=== PATIENT | female | born 1940 | race African-American/Black ===

== ENCOUNTER 2018-08-03 09:23 | Day surgery (SDC) | payer MEDICARE, OTHER ==
[~2018-08-03 09:23] MED LIST: CEFAZOLIN 1 GM/D5W RTU 1 GM/50 ML RTUPB IV ONE; CEFAZOLIN 1 GM/D5W RTU 1 GM/50 ML RTUPB IV PRN; DIAZEPAM 5 MG TABLET ONE; DIAZEPAM 5 MG TABLET PO PRN; OXYCODONE-ACETAMINOPHEN 5-325 MG TABLET ONE; OXYCODONE-ACETAMINOPHEN 5-325 MG TABLET PO PRN
--- NOTE | 2018-08-03 10:27 | RADIOLOGY REPORT (SQ) ---
EXAM DESCRIPTION: CHEST SINGLE VIEW COMPLETED DATE/TIME: 08/03/2018 10:04 am REASON FOR STUDY: PREOP COMPARISON: 01/26/2015 EXAM PARAMETERS: NUMBER OF VIEWS: One view. TECHNIQUE: Single frontal radiographic view of the chest acquired. RADIATION DOSE: NA LIMITATIONS: None. FINDINGS: LUNGS AND PLEURA: Post right upper lobectomy. Lungs are well inflated and clear. No pleu ral effusion. No pneumothorax. MEDIASTINUM AND HILAR STRUCTURES: Surgical clips at the right hilum post right upper lobectomy. HEART AND VASCULAR STRUCTURES: Heart normal in size. Normal vasculature. BONES: No acute findings. HARDWARE: None in the chest. OTHER: No other significant finding. IMPRESSION: No acute findings. Right upper lobectomy. TECHNICAL DOCUMENTATION: JOB ID: [id number] [email or web address]- All Rights Reserved Reading location - IP/workstation name: [email or web address]
[2018-08-03 10:28] LABS: HEMATOCRIT 33.9 % (36.0-47.0); HEMOGLOBIN 10.8 g/dL (12.0-15.5); MEAN CORPUSCULAR HEMOGLOBIN 22.7 pg (27.0-33.4); MEAN CORPUSCULAR HGB CONC 31.9 g/dL (32.0-36.0); MEAN CORPUSCULAR VOLUME 71 fl (80-97); PLATELET COUNT 296 10^3/uL (150-450); RED BLOOD COUNT 4.75 10^6/uL (3.72-5.28); RED CELL DISTRIBUTION WIDTH 17.7 % (11.5-14.0); WHITE BLOOD COUNT 9.1 10^3/uL (4.0-10.5)
[2018-08-03 10:51] LABS: ANION GAP 9 (5-19); BLOOD UREA NITROGEN 13 mg/dL (7-20); CALCIUM 9.9 mg/dL (8.4-10.2); CARBON DIOXIDE 29 mmol/L (22-30); CHLORIDE 102 mmol/L (98-107); GLUCOSE 107 mg/dL (75-110); SODIUM 139.6 mmol/L (137-145)
[2018-08-03] MEDS ORDERED: LIDOCAINE 0.5% INJ-PF (5 MG/ML) 50 ML SDV ONE (11:12)
[2018-08-03] MEDS ORDERED: BACITRACIN INJ 50,000 UNIT VIAL ONE (11:13)
[2018-08-03] MEDS ORDERED: MIDAZOLAM 2 MG/2 ML INJ ONE (11:23)
[2018-08-03] MEDS ORDERED: FENTANYL CITRATE INJ/PF 100 MCG/2 ML AMPUL ONE (11:23)
--- NOTE | 2018-08-03 12:33 | Discharge Summary ---
Discharge Summary (SDC) - Discharge Final Diagnosis: Lung cancer Date of Surgery: 08/03/18 Discharge Date: 08/03/18 Condition: Fair Treatment or Instructions: Discharge home [after recovery per ASU criteria]. Diet , as tolerated, when fully awake advance as tolerated. Activities within moderation encouraged. Follow up in my office by appointment in about [1 week]. Call for appointment. Leave wounds [covered], [keep clean and dry, until office visit in 1 week]. Meds per med rec. May shower [in 48 hrs], [try to keep operated area as dry as possible]. Referrals: GORDON LOJA MD [Primary Care Provider] - Discharge Diet: As Tolerated Respiratory Treatments at Home: Deep Breathing/Coughing Discharge Activity: Activity As Tolerated Report the Following to Your Physician Immediately: Unusual Bleeding
--- NOTE | 2018-08-03 12:35 | Operative Report ---
Operative Report DATE OF SURGERY: 08/03/18 PREOPERATIVE DIAGNOSIS: Lung cancer POSTOPERATIVE DIAGNOSIS: Lung cancer OPERATION: 1. Ultrasound evaluation of the right internal jugular vein. 2. Insertion of Port-A-Cath via real-time access in the right internal jugular ve in. 3. Angiogram and interpretation. SURGEON: JEIMY EVANS HEAT TRANSFER TECHNICIAN: None. ANESTHESIA: Moderate Sedation TISSUE REMOVED OR ALTERED: Not applicable. COMPLICATIONS: None. ESTIMATED BLOOD LOSS: 5 mL. INTRAOPERATIVE FINDINGS: Of mediastinal enlargement with right deviation of the superior vena cava. Satisfactory access in position with the tip of the catheter down in the inferior superior vena cava. Easy egress of blood and ingress of heparinized solution. Catheter angiogram demonstrates smooth flow of contrast through the right atrium ventricle and pulmonary outflow tract. PROCEDURE: After obtaining informed consent, the patient was taken to the [facility] and positioned supine. The [right] neck and chest were prepared with chlorhexidine and draped out with sterile linen. After the " universal timeout", in which it was verified that the patient continued to receive antibiotic, the procedure commenced. A steriley sheathed ultrasound probe was used to evaluate the [right] internal jugular vein. Local anesthesia was infiltrated adjacent to the probe. Access into the [right] internal jugular vein was obtained using a micropuncture needle, followed by micropuncture wire and then a micropuncture catheter. An angiogram was done through this to verify the this was followed by introduction of a 0.035 guidewire the tip of which was placed down into the inferior vena cava . The port sites was marked , locally anesthetized and incision made. Dissection now proceeded to the deep subcutaneous subcutaneous tissues so that a pocket for the port was made. Meticulous hemostasis was secured and the catheter was tunneled between the 2 incisions. Proximally, the catheter was now positioned using a peel-away sheath. Distally the catheter was tailored to an appropriate length and then mated to the port using the contained fixating device. The port was now placed in the pocket and the catheter optimally positioned. The port was accessed with a Hopkins needle and an angiogram done under digital subtraction. The findings as dictated. With adequate and satisfactory positioning, the lumen of the chamber were irrigated with heparinized solution. The wounds were now closed using interrupted 3-0 PDS to the subcutaneous tissues and a continuous subcuticular suture of 4-0 Monocryl to the skin. These are reinforced with Steri-Strips over benzoin and then dressings applied. Time: 0.2 minute. Dose: 22.23 m Gy Contrast: 10 Mls. Isovue 300. Copies of the dictated operative report for Dr. Jeimy Keller MD.
--- NOTE | 2018-08-03 13:02 | RADIOLOGY REPORT (SQ) ---
EXAM DESCRIPTION: PORTACATH INSERTION COMPLETED DATE/TIME: 08/03/2018 12:18 pm REASON FOR STUDY: C34.11 RT LUNG CA C34.11 MALIGNANT NEOPLASM OF UPPER LOBE, RIGHT BRONCHUS OR L COMPARISON: None. FLUOROSCOPY TIME: 0.2 minutes 33 digital radiographic images saved to PACS. TECHNIQUE: Intra-operative images acquired during surgical procedure to evaluate progress. NUMBER OF IMAGES: 33 digital radiographic images LIMITATIONS: None. FINDINGS: Intra procedural imaging and fluoro during placement of a right-sided permanent central li ne with the tip at the junction of the superior vena cava/ right atrium. Surgical clips right hilum post upper lobectomy. Please see the operative report for further details IMPRESSION: Intra procedural imaging and fluoro during central line placement COMMENT: Quality ID [id number]: Final reports for procedures using fluoroscopy that document radiation exp osure indices, or exposure time and number of fluorographic images (if radiation exposure indices are not available) Please consult full operative report of the attending physician for description of the procedure. TECHNICAL DOCUMENTATION: JOB ID: [id number] [employer]- All Rights Reserved Reading location - IP/workstation name: [email or web address]
[2018-08-03 14:41] VITALS: BP 123/65
== END 2018-08-03 13:45 | disposition home or self-care (01) ==
LOC: CCL 09:23
PROVIDERS: ATTEND Surgery
DX: C34.11 Malignant neoplasm of upper lobe, right bronchus or lung (principal); I12.0 Hypertensive chronic kidney disease with stage 5 chronic kidney disease or end stage renal disease; E11.22 Type 2 diabetes mellitus with diabetic chronic kidney disease; N18.6 End stage renal disease; K02.9 Dental caries, unspecified; E66.9 Obesity, unspecified; Z68.45 Body mass index [BMI] 70 or greater, adult; Z87.891 Personal history of nicotine dependence; Z01.818 Encounter for other preprocedural examination; Z79.899 Other long term (current) drug therapy; Z79.82 Long term (current) use of aspirin
CPT/HCPCS: 36415; 85027; 80048; 36561; 76937; 77001; 71045; C1752; C1788; Q9967; J2250; J3490 ×2; J0690; A9270 ×2; J3010; J1644

== ENCOUNTER → 2018-09-10 | Outpatient (CLI) | payer MEDICARE, OTHER ==
--- NOTE | 2018-09-10 09:34 | RADIOLOGY REPORT (SQ) ---
EXAM DESCRIPTION: CT CHEST WITH COMPLETED DATE/TIME: 09/10/2018 8:55 am REASON FOR STUDY: LUNG CA (C34.11) C34.11 MALIGNANT NEOPLASM OF UPPER LOBE, RIGHT BRONCHUS OR L COMPARISON: No prior examinations are available at this reading. TECHNIQUE: CT scan of the chest performed using helical scanning technique with dynamic intravenous contrast injection. Images reviewed with lung, soft tissue and bone windows. Reconstructed coronal and sagittal MPR and MIP images reviewed. All images stored on PACS. All CT scanners at this facility use dose modulation, iterative reconstruction, and/or weight based d osing when appropriate to reduce radiation dose to as low as reasonably achievable (ALARA). [facility]: Dose Right [facility]: CareDose [facility]: Dose Right [facility]: Teradose 4D [facility]: [employer] CONTRAST TYPE AND DOSE: contrast/concentration: Isovue 350.00 mg/ml; Total Contrast Delivered: 79.0 ml; Total Saline Delivered: 55.0 ml RENAL FUNCTION: Within acceptable limits. RADIATION DOSE: Total exam DLP: 577.58 mGy-cm. LIMITATIONS: None. FINDINGS: LUNGS AND PLEURA: Status post operative changes in the right hemithorax related to right upper lobectomy with loss of volume. Small to mild right pleural effusion. Mild emphysematous and interstitial changes in the lungs. Scattered subpleural nodularity in the lef t lung with one of the largest measuring approximately 5-6.0 mm. Left perifissural nodules which radha sure 5-6 mm. No evidence of pneumothorax. The central airways are clear. HILAR AND MEDIASTINAL STRUCTURES: Borderline to mildly prominent mediastinal lymph nodes. HEART AND VASCULAR STRUCTURES: Atherosclerotic changes involving the thoracic aorta. Focal small areas of cor onary artery calcifications. No aneurysm or dissection. No central pulmonary emboli. No pericardia l effusion. HARDWARE: Right Nztsko-X-Uqik catheter. UPPER ABDOMEN: A too small to characterize hypoattenuated lesion in the periphery of the right hepat ic lobe, axial image 47, series 2. Prior cholecystectomy. Exophytic left renal cyst. Mild atherosc lerotic changes involving the visualized abdominal aorta. Splenule, normal anatomic variant. Small hiatal hernia. Limited examination. THYROID AND OTHER SOFT TISSUES: The visualized thyroid gland is heterogenous in appearance with smal l subcentimeter hypoattenuated nodules. BONES: No significant finding. OTHER: No other significant finding. IMPRESSION: 1. The patient's prior examinations are not available at this reading. 2. Status postoperative changes in the right hemithorax related to prior right upper lobectomy. 3. Mild emphysematous and interstitial changes in the lungs. 4. Scattered subpleural nodularity in the left lung and left perifissural nodules. 5. Too small to characterize hypoattenuated right hepatic lobe lesion. 6. Additional findings as above. TECHNICAL DOCUMENTATION: JOB ID: [id number] Quality ID # [id number]: Final reports with documentation of one or more dose reduction techniques (e.g., Au tomated exposure control, adjustment of the mA and/or kV according to patient size, use of iterative reconstruction technique) 2010 [employer]- All Rights Reserved Reading location - IP/workstation name: [email or web address]
== END ==
LOC: RAD 08:29
PROVIDERS: ATTEND Physician Assistant Medical
DX: C34.11 Malignant neoplasm of upper lobe, right bronchus or lung (principal); N28.1 Cyst of kidney, acquired
CPT/HCPCS: 71260

== ENCOUNTER → 2019-01-31 | Outpatient (CLI) | payer MEDICARE, OTHER ==
--- NOTE | 2019-02-01 11:35 | RADIOLOGY REPORT (SQ) ---
EXAM DESCRIPTION: PET CT SKULL/THIGH COMPLETED DATE/TIME: 02/01/2019 1:07 am REASON FOR STUDY: (C34.11)MALIGNANT NEOPLASM OF UPPER LOBE, RIGHT BRONCHUS OR LUNG C34.11 MALIGNANT NEOPLASM OF UPPER LOBE, RIGHT BRONCHUS OR L COMPARISON: CT chest 09/10/2018 RADIONUCLIDE AND DOSE: 10.7 mCi F18 FDG The route of agent administration: Intravenous FASTING BLOOD SUGAR: 106 mg/dl CONTRAST TYPE AND DOSE: No CT contrast given. TECHNIQUE: Blood glucose level was verified. Above dose of FDG was injected intravenously. 2-D seg mented attenuation correction images were obtained from the base of the skull to the midthighs. Nonc ontrast CT images were obtained for attenuation correction and fusion with emission images. CT image s were performed without oral or intravenous contrast and are not sensitive for parenchymal lesions. A series of overlapping emission PET images were obtained. Images reviewed and manipulated at [facility] by the radiologist. Images stored on PACS. LIMITATIONS: CT chest 09/10/2018 FINDINGS: HEAD AND NECK: No areas of abnormal metabolic activity in the soft tissues of the head and neck. CHEST: Post right upper lobectomy, with resection of the right 2nd 3rd and 4th posterior ribs posteri or ribs. There is volume loss in the right hemithorax with trace right pleural effusion. Consolidat ion is present in the residual right upper lung worrisome for pneumonia, with SUV of 6.8. No right hilar or mediastinal metabolically active adenopathy. No right supraclavicular or axillary adenopathy. ABDOMEN AND PELVIS: Clips right upper quadrant post cholecystectomy. PROXIMAL LOWER EXTREMITIES: No areas of abnormal metabolic activity in the soft tissues of the lower extremities. BONES: No abnormal metabolic activity in the visualized skeleton. ADDITIONAL CT FINDINGS: Benign water density non metabolic left adnexal cyst, 7 x 5 cm in size. Post cholecystectomy. OTHER: Liver background activity 2.7 SUV. Blood pool background activity 1.8 SUV IMPRESSION: Consolidation of right lung new compared to prior chest CT 09/10/2018, worrisome for pneum onia. No PET-CT evidence of recurrent lung cancer TECHNICAL DOCUMENTATION: JOB ID: [id number] [employer]- All Rights Reserved Reading location - IP/workstation name: [email or web address]
== END ==
LOC: RAD 14:45
PROVIDERS: ATTEND Physician Assistant Medical
DX: C34.11 Malignant neoplasm of upper lobe, right bronchus or lung (principal)
CPT/HCPCS: 78815; A9552

== ENCOUNTER → 2019-02-19 | Outpatient (CLI) | payer MEDICARE, OTHER ==
--- NOTE | 2019-02-19 16:25 | RADIOLOGY REPORT (SQ) ---
EXAM DESCRIPTION: CHEST PA/LATERAL COMPLETED DATE/TIME: 02/19/2019 4:14 pm REASON FOR STUDY: SHORTNESS OF BREATH COMPARISON: 08/03/2018. CT chest from September. PET-CT from January. TECHNIQUE: Frontal and lateral radiographic views of the chest acquired. NUMBER OF VIEWS: Two view. LIMITATIONS: None. FINDINGS: LUNGS AND PLEURA: Stents of volume loss right lung. As seen on PET-CT, patchy airspace di sease and pleural thickening, doubt change compared to the January head study. Left lung remains chele r. MEDIASTINUM AND HILAR STRUCTURES: Shift of mediastinal structures to the right, chronic. HEART AND VASCULAR STRUCTURES: Stable. BONES: Osteopenic. HARDWARE: Right central line. OTHER: No other significant finding. IMPRESSION: Airspace disease and volume loss right lung, similar appearance to PET study from last [facility]. TECHNICAL DOCUMENTATION: JOB ID: [id number] [employer]- All Rights Reserved Reading location - IP/workstation name: [email or web address]
== END ==
LOC: OD 15:29
PROVIDERS: ATTEND Internal Medicine
DX: R06.02 Shortness of breath (principal)
CPT/HCPCS: 71046

== ENCOUNTER → 2019-03-19 | Outpatient (CLI) | payer MEDICARE, OTHER ==
--- NOTE | 2019-03-19 10:28 | RADIOLOGY REPORT (SQ) ---
EXAM DESCRIPTION: CT CHEST WITHOUT COMPLETED DATE/TIME: 03/19/2019 8:51 am REASON FOR STUDY: (C34.11)MALIGNANT NEOPLASM OF UPPER LOBE, RIGHT BRONCHUS OR LUNG C34.11 MALIGNANT NEOPLASM OF UPPER LOBE, RIGHT BRONCHUS OR L COMPARISON: PET-CT dated 01/31/2019, CT chest dated 09/10/2018 TECHNIQUE: CT scan performed of the chest without intravenous contrast. Images reviewed with lung, soft tissue and bone windows. Reconstructed coronal and sagittal MPR images reviewed. All images st ored on PACS. All CT scanners at this facility use dose modulation, iterative reconstruction, and/or weight based d osing when appropriate to reduce radiation dose to as low as reasonably achievable (ALARA). [facility]: Dose Right [facility]: CareDose [facility]: Dose Right [facility]: Teradose 4D [facility]: [employer] RADIATION DOSE: CT Rad equipment meets quality standard of care and radiation dose reduction techniq ues were employed. CTDIvol: 17.1 mGy. DLP: 615 mGy-cm. mGy. LIMITATIONS: No technical limitations. FINDINGS: LUNGS AND PLEURA: Postsurgical changes on the right are again noted with volume loss. Per sistent dense consolidation in the right upper lobe unchanged from recent PET-CT. There is pleural t hickening. There is new subpleural airspace disease in the anterior aspect of the left upper lobe wi th a small new ill-defined 8 mm pulmonary nodule. This is new from recent PET as well. Differential include infectious or inflammatory process or metastatic disease HILAR AND MEDIASTINAL STRUCTURES: No identified masses or abnormal nodes. No obvious aneurysm. HEART AND VASCULAR STRUCTURES: No aneurysm. No pericardial effusion. UPPER ABDOMEN: No significant findings. Limited exam. THYROID AND OTHER SOFT TISSUES: No masses. No adenopathy. BONES: Stable in appearance. HARDWARE: None in the chest. OTHER: No other significant findings. IMPRESSION: 1. Stable dense consolidation in the right upper lobe most likely infectious or inflamma tory based on PET findings. 2. New 8 mm ill-defined nodule in the left upper lobe best demonstrated on series 4, image 18. This could represent infectious or inflammatory process. Metastatic disease cannot be excluded. 3. Postsurgical changes on the right with volume loss. TECHNICAL DOCUMENTATION: JOB ID: [id number] Quality ID # 436: Final reports with documentation of one or more dose reduction techniques (e.g., Au tomated exposure control, adjustment of the mA and/or kV according to patient size, use of iterative reconstruction technique) 2010 [employer]- All Rights Reserved Reading location - IP/workstation name: [email or web address]
== END ==
LOC: RAD 08:13
PROVIDERS: ATTEND Internal Medicine
DX: C34.11 Malignant neoplasm of upper lobe, right bronchus or lung (principal)
CPT/HCPCS: 71250

== ENCOUNTER → 2019-05-17 | Outpatient (CLI) | payer MEDICARE, OTHER ==
--- NOTE | 2019-05-17 10:02 | RADIOLOGY REPORT (SQ) ---
EXAM DESCRIPTION: CT CHEST WITHOUT COMPLETED DATE/TIME: 05/17/2019 7:36 am REASON FOR STUDY: LUNG CA (C34.11) C34.11 MALIGNANT NEOPLASM OF UPPER LOBE, RIGHT BRONCHUS OR L COMPARISON: 03/19/2019 TECHNIQUE: CT scan performed of the chest without intravenous contrast. Images reviewed with lung, soft tissue and bone windows. Reconstructed coronal and sagittal MPR images reviewed. All images st ored on PACS. All CT scanners at this facility use dose modulation, iterative reconstruction, and/or weight based d osing when appropriate to reduce radiation dose to as low as reasonably achievable (ALARA). [facility]: Dose Right [facility]: CareDose [facility]: Dose Right [facility]: Teradose 4D [facility]: [employer] RADIATION DOSE: CT Rad equipment meets quality standard of care and radiation dose reduction techniq ues were employed. CTDIvol: 17.9 mGy. DLP: 651 mGy-cm. mGy. LIMITATIONS: No technical limitations. FINDINGS: LUNGS AND PLEURA: Old right upper lobectomy thoracotomy. Chronic consolidation superior s egment right lower lobe. Left upper lobe pleural-based nodule image 37 measuring 5 mm, less conspicu ous than prior. No new nodules. HILAR AND MEDIASTINAL STRUCTURES: No identified masses or abnormal nodes. No obvious aneurysm. HEART AND VASCULAR STRUCTURES: No aneurysm. No pericardial effusion. UPPER ABDOMEN: No significant findings. Limited exam. THYROID AND OTHER SOFT TISSUES: No masses. No adenopathy. BONES: No significant finding. HARDWARE: None in the chest. OTHER: Right-sided central line. IMPRESSION: Chronic changes in the right lung status post right upper lobectomy/ thoracotomy. Stable subcentimeter nodule left upper lobe. TECHNICAL DOCUMENTATION: JOB ID: [id number] Quality ID # 436: Final reports with documentation of one or more dose reduction techniques (e.g., Au tomated exposure control, adjustment of the mA and/or kV according to patient size, use of iterative reconstruction technique) 2010 [employer]- All Rights Reserved Reading location - IP/workstation name: [email or web address]
== END ==
LOC: RAD 07:22
PROVIDERS: ATTEND Physician Assistant Medical
DX: C34.11 Malignant neoplasm of upper lobe, right bronchus or lung (principal)
CPT/HCPCS: 71250

== ENCOUNTER → 2019-07-13 | Outpatient (CLI) | payer MEDICARE, OTHER ==
--- NOTE | 2019-07-14 12:22 | RADIOLOGY REPORT (SQ) ---
EXAM DESCRIPTION: PET CT SKULL/THIGH COMPLETED DATE/TIME: 07/13/2019 9:09 pm REASON FOR STUDY: C34.11 MALIGNANT NEOPLASM OF UPPER LOBE, RIGHT BRONCHUS OR LUNG C34.11 MALIGNANT NEOPLASM OF UPPER LOBE, RIGHT BRONCHUS OR L COMPARISON: CT of the chest without contrast from 05/17/2019 and PET from 01/31/2019. RADIONUCLIDE AND DOSE: 9.85 mCi F18 FDG The route of agent administration: Intravenous FASTING BLOOD SUGAR: 104 mg/dl CONTRAST TYPE AND DOSE: No CT contrast given. TECHNIQUE: Blood glucose level was verified. Above dose of FDG was injected intravenously. 2-D seg mented attenuation correction images were obtained from the base of the skull to the midthighs. Nonc ontrast CT images were obtained for attenuation correction and fusion with emission images. CT image s were performed without oral or intravenous contrast and are not sensitive for parenchymal lesions. A series of overlapping emission PET images were obtained. Images reviewed and manipulated at [facility] work station by the radiologist. Images stored on PACS. LIMITATIONS: None. FINDINGS: HEAD AND NECK: No areas of abnormal metabolic activity in the soft tissues of the head and neck. CHEST: Status post right upper lobectomy and right thoracotomy. The areas of consolidation with air bronchograms in the superior aspect of the right lower lobe are unchanged and demonstrate mild diffus e FDG uptake with a maximum SUV of 4.3. No areas of abnormal metabolic activity identified in the ch est. ABDOMEN AND PELVIS: The liver demonstrates heterogeneous FDG uptake with an average SUV of 2.6. Ther e is expected physiologic activity throughout the gastrointestinal and genitourinary tracts. No area s of abnormal metabolic activity are identified in the abdomen and pelvis. PROXIMAL LOWER EXTREMITIES: No areas of abnormal metabolic activity in the soft tissues of the lower extremities. BONES: No areas of abnormal metabolic activity in the imaged axial and appendicular skeleton. ADDITIONAL CT FINDINGS: Status post cholecystectomy. There is a 2.2 cm accessory splenium in the lef t upper quadrant and a 6.6 x 4.9 cm water attenuation cyst in the left adnexum. OTHER: No other findings. IMPRESSION: 1. No metabolic evidence of recurrent disease. 2. Chronic area of consolidation with air bronchograms in the superior aspect of the right lower lob e that demonstrates mild diffuse FDG uptake and could represent the sequela of prior treatment. TECHNICAL DOCUMENTATION: JOB ID: [id number]- All Rights Reserved Reading location - IP/workstation name: [email or web address]
== END ==
LOC: RAD 08:11
PROVIDERS: ATTEND Physician Assistant Medical
DX: C34.11 Malignant neoplasm of upper lobe, right bronchus or lung (principal)
CPT/HCPCS: 78815; A9552

== ENCOUNTER → 2019-10-11 | Outpatient (CLI) | payer MEDICARE, OTHER ==
--- NOTE | 2019-10-11 11:13 | RADIOLOGY REPORT (SQ) ---
EXAM DESCRIPTION: CT CHEST WITHOUT IMAGES COMPLETED DATE/TIME: 10/11/2019 8:50 am REASON FOR STUDY: LUNG CA (C34.11) C34.11 MALIGNANT NEOPLASM OF UPPER LOBE, RIGHT BRONCHUS OR L COMPARISON: PET from 07/13/[address] of the chest without contrast from May 17. TECHNIQUE: CT scan performed of the chest without intravenous contrast. Images reviewed with lung, soft tissue and bone windows. Reconstructed coronal and sagittal MPR images reviewed. All images st ored on PACS. All CT scanners at this facility use dose modulation, iterative reconstruction, and/or weight based d osing when appropriate to reduce radiation dose to as low as reasonably achievable (ALARA). [facility]: Dose Right [facility]: CareDose [facility]: Dose Right [facility]: Teradose 4D [facility]: [employer] RADIATION DOSE: CT Rad equipment meets quality standard of care and radiation dose reduction techniq ues were employed. CTDIvol: 18.9 mGy. DLP: 781 mGy-cm. LIMITATIONS: No technical limitations. FINDINGS: LUNGS AND PLEURA: Unchanged abrupt truncation of the right upper lobar bronchus consistent with prior right upper lobectomy. The chronic area of consolidation associated with volume loss and bronchiectasis in the superior segment of the right lower lobe is unchanged. The 5 mm ground-glass nodule in the left upper lobe (image 18 of series 2) is also unchanged. There is no new or enlarged pulmonary nodule. There is also no acute consolidation, ground-glass opacification, pleural effusion or pneumothorax. HILAR AND MEDIASTINAL STRUCTURES: Unchanged left to right mediastinal shift. There is no mediastinal adenopathy or mass. Evaluation of the akash is limited due to the absence of intravenous contrast. HEART AND VASCULAR STRUCTURES: Atherosclerotic calcification of the thoracic aorta and coronary arter ies. There is no thoracic aortic aneurysm, cardiomegaly or sizable pericardial effusion. UPPER ABDOMEN: Cholecystectomy and accessory splenule in the left upper quadrant that measures 2.2 cm in AP diameter. THYROID AND OTHER SOFT TISSUES: No masses or adenopathy BONES: Thoracotomy defect on the right. There is no acute fracture or osseous lesion. HARDWARE: None in the chest. OTHER: No other findings. IMPRESSION: Status post right thoracotomy and right upper lobectomy. The chronic area of consolidat ion associated with volume loss and bronchiectasis in the superior segment of the right lower lobe is unchanged and could represent the sequela of prior radiation. The 5 mm ground-glass subpleural nodu le in the left upper lobe (image 18 of series 2) also unchanged. There is no acute cardiopulmonary p rocess. TECHNICAL DOCUMENTATION: JOB ID: [id number] Quality ID # 436: Final reports with documentation of one or more dose reduction techniques (e.g., Au tomated exposure control, adjustment of the mA and/or kV according to patient size, use of iterative reconstruction technique) 2010 [employer]- All Rights Reserved Reading location - IP/workstation name: [email or web address]
== END ==
LOC: RAD 08:15
PROVIDERS: ATTEND Internal Medicine
DX: C34.11 Malignant neoplasm of upper lobe, right bronchus or lung (principal); J47.9 Bronchiectasis, uncomplicated
CPT/HCPCS: 71250

== ENCOUNTER → 2020-01-20 | Outpatient (CLI) | payer MEDICARE, OTHER ==
--- NOTE | 2020-01-20 11:04 | RADIOLOGY REPORT (SQ) ---
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 Images reviewed with lung, soft tissue and bone windows. Reconstructed coronal and sagittal MPR images reviewed. All images st ored on PACS. All CT scanners at this facility use dose modulation, iterative reconstruction, and/or weight based d osing when appropriate to reduce radiation dose to as low as reasonably achievable (ALARA). [facility]: Dose Right [facility]: CareDose [facility]: Dose Right [facility]: Teradose 4D [facility]: [employer] RADIATION DOSE: CT Rad equipment meets quality standard of care and radiation dose reduction techniq ues were employed. CTDIvol: 19.4 mGy. DLP: 744 mGy-cm. mGy. LIMITATIONS: No technical limitations. FINDINGS: LUNGS AND PLEURA: Stable rind of consolidation in the right apex status post right upper l obectomy. The left lung is clear. HILAR AND MEDIASTINAL STRUCTURES: No identified masses or abnormal nodes. No obvious aneurysm. HEART AND VASCULAR STRUCTURES: No aneurysm. No pericardial effusion. UPPER ABDOMEN: No significant findings. Limited exam. THYROID AND OTHER SOFT TISSUES: No masses. No adenopathy. BONES: No significant finding. HARDWARE: None in the chest. OTHER: No other significant findings. IMPRESSION: Stable chest status post right upper lobectomy. TECHNICAL DOCUMENTATION: JOB ID: [id number] Quality ID # [id number]: Final reports with documentation of one or more dose reduction techniques (e.g., Au tomated exposure control, adjustment of the mA and/or kV according to patient size, use of iterative reconstruction technique) 2010 [employer]- All Rights Reserved Reading location - IP/workstation name: [email or web address]
== END ==
LOC: RAD 07:16
PROVIDERS: ATTEND Physician Assistant Medical
DX: C34.11 Malignant neoplasm of upper lobe, right bronchus or lung (principal)
CPT/HCPCS: 71250

== ENCOUNTER → 2020-06-05 | Outpatient (CLI) | payer MEDICARE, OTHER ==
--- NOTE | 2020-06-05 12:23 | RADIOLOGY REPORT (SQ) ---
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 Images reviewed with lung, soft tissue and bone windows. Reconstructed coronal and sagittal MPR images reviewed. All images st ored on PACS. All CT scanners at this facility use dose modulation, iterative reconstruction, and/or weight based d osing when appropriate to reduce radiation dose to as low as reasonably achievable (ALARA). [facility]: Dose Right [facility]: CareDose [facility]: Dose Right [facility]: Teradose 4D [facility]: [employer] RADIATION DOSE: CT Rad equipment meets quality standard of care and radiation dose reduction techniq ues were employed. CTDIvol: 18.4 mGy. DLP: 788 mGy-cm. mGy. LIMITATIONS: No technical limitations. FINDINGS: LUNGS AND PLEURA: Status post right upper lobectomy. Stable opacification in the right ap ex. Ill-defined areas of ground-glass infiltrate in the left lower lobe and left upper lobe peripher ally. These areas represent new finding. HILAR AND MEDIASTINAL STRUCTURES: No identified masses or abnormal nodes. No obvious aneurysm. HEART AND VASCULAR STRUCTURES: No aneurysm. No pericardial effusion. UPPER ABDOMEN: No significant findings. Limited exam. THYROID AND OTHER SOFT TISSUES: No masses. No adenopathy. BONES: No significant finding. HARDWARE: None in the chest. OTHER: No other significant findings. IMPRESSION: 1. Status post right upper lobectomy. Stable opacification in the right apex. 2. There are new ill-defined areas of ground-glass infiltrate in the left upper lobe and left lower lobe peripherally. Cannot exclude an atypical infectious/ inflammatory process. TECHNICAL DOCUMENTATION: JOB ID: [id number] Quality ID # [id number]: Final reports with documentation of one or more dose reduction techniques (e.g., Au tomated exposure control, adjustment of the mA and/or kV according to patient size, use of iterative reconstruction technique) 2010 [employer]- All Rights Reserved Reading location - IP/workstation name: [email or web address]
== END ==
LOC: RAD 08:24
PROVIDERS: ATTEND Internal Medicine
DX: C34.11 Malignant neoplasm of upper lobe, right bronchus or lung (principal)
CPT/HCPCS: 71250